=== PATIENT | female | born 1985 | race African-American/Black ===

== ENCOUNTER 2022-07-18 04:29 | Emergency (ER) | payer MEDICAID ==
[~2022-07-18] VITALS: Ht 170.2 cm; Wt 61.0 kg
[2022-07-18 04:37] VITALS: BP 112/74
== END 2022-07-18 08:57 | disposition left against medical advice (07) ==
LOC: ER 04:29
DX: Z53.21 Procedure and treatment not carried out due to patient leaving prior to being seen by health care provider (principal)
CPT/HCPCS: 99281